=== PATIENT | female | born 1985 | race Caucasian/White ===

== ENCOUNTER → 2018-11-08 | Outpatient (REF) | payer OTHER | LOC: M LAB REF 11:52 | PROVIDERS: ATTEND Physician Assistant | DX: N76.1 Subacute and chronic vaginitis (principal) ==

== ENCOUNTER → 2018-12-29 | Outpatient (CLI) | payer OTHER | LOC: M SMT 11:40 | PROVIDERS: ATTEND Advanced Practice Midwife | DX: Z13.79 Encounter for other screening for genetic and chromosomal anomalies (principal) ==

== ENCOUNTER → 2019-04-19 | Outpatient (CLI) | payer OTHER ==
[2019-04-19 18:33] LABS: BASO % 0.3 % (0.0-1.0); EOS # 0.1 10^3/uL (0.0-0.50); EOS % 1.2 % (0.0-3.0); HEMATOCRIT 37.5 % (36.0-47.0); HEMOGLOBIN 12.7 g/dl (12.0-15.5); LYMPH # 1.6 10^3/uL (1.5-4.5); LYMPH % 20.1 % (24.0-44.0); MEAN CORPUSCULAR HEMOGLOBIN 32.9 pg (27.0-33.0); MEAN CORPUSCULAR HGB CONC 33.9 g/dl (32.0-36.5); MEAN CORPUSCULAR VOLUME 97.2 fl (80.0-96.0); MONO # 0.5 10^3/uL (0.0-0.8); MONO % 6.9 % (0.0-5.0); NEUTROPHILS # 5.5 10^3/uL (1.8-7.7); NEUTROPHILS % 71.2 % (36.0-66.0); PLATELET COUNT, AUTOMATED 232 10^3/uL (150-450); RED BLOOD COUNT 3.86 10^6/uL (4.00-5.40); WHITE BLOOD COUNT 7.7 10^3/uL (4.0-10.0)
[2019-04-19 21:09] LABS: CHLAMYDIA DNA AMPLIFICATION NEGATIVE (NEGATIVE); GC DNA AMPLIFICATION NEGATIVE (NEGATIVE)
[2019-04-20 10:46] LABS: HEPATITIS C VIRUS ABY INDEX 0.1 INDEX (<0.8); HIV 1&2 SCREEN CENTAUR NEGATIVE (NEGATIVE); RUBELLA IgG QUALITATIVE IMMUNE (IMMUNE)
== END ==
LOC: M SMT 14:12
PROVIDERS: ATTEND Advanced Practice Midwife
DX: Z36.89 Encounter for other specified antenatal screening (principal)

== ENCOUNTER → 2019-06-24 | Outpatient (CLI) | payer OTHER ==
--- NOTE | 2019-06-24 18:02 | REP ---
Obstetric sonography: History: Supervision of for anatomy. Findings: Scanning through the gravid uterus demonstrates a viable single intrauterine gestation in a variable lie. motion is observed and heart rate is recorded at 147 beats per minute. An anterior grade 1 to zero placenta is seen without evidence of previa or abruption. Amniotic fluid is subjectively normal. Closed cervical length is 3.8 cm. No extrauterine abnormalities observed. No anomaly is seen. The following anatomic structures are identified and felt to be sonographically unremarkable: cranium, choroid plexus, cavum, cerebellum posterior fossa, face and profile, lungs, four-chamber heart with left and right ventricular outflow tract views, diaphragm, left-sided stomach, abdominal wall cord insertion, three-vessel umbilical cord, kidneys and bladder, spine, upper and lower extremities. Biometry chart: BPD 4.1 cm 18 weeks 3 days head circumference 15.6 cm 18 weeks 4 days abdominal circumference 13.6 cm 19 weeks 0 days femur length 2.9 cm 18 weeks 6 days humeral length 2.9 cm 19 weeks 3 days HC/AC ratio normal 1.16, cephalic index normal 0.72, estimated weight 262 grams, 0 pounds 9 ounces, 57th percentile for 18 weeks 4 days. Impression: Viable single intrauterine gestation at 18-week 6 days by today's composite sonographic criteria. JANEL by today's sonography November 19, 2019. Electronically Signed by Rogelio Tijerina MD 06/24/2019 07:51 P
== END ==
LOC: M RAD 12:56
PROVIDERS: ATTEND Advanced Practice Midwife
DX: Z34.82 Encounter for supervision of other normal pregnancy, second trimester (principal)

== ENCOUNTER → 2019-08-15 | Outpatient (CLI) | payer OTHER | LOC: M PLALAB 10:36 | PROVIDERS: ATTEND Advanced Practice Midwife | DX: Z33.1 Pregnant state, incidental (principal) ==

== ENCOUNTER → 2019-10-19 | Outpatient (CLI) | payer OTHER | LOC: M PLALAB 15:37 | PROVIDERS: ATTEND Advanced Practice Midwife | DX: Z34.83 Encounter for supervision of other normal pregnancy, third trimester (principal); Z3A.00 Weeks of gestation of pregnancy not specified ==

== ENCOUNTER → 2019-10-19 | Outpatient (REF) | payer OTHER | LOC: M SFHCWAGY 16:52 | PROVIDERS: ATTEND Advanced Practice Midwife | DX: Z36.89 Encounter for other specified antenatal screening (principal); Z3A.00 Weeks of gestation of pregnancy not specified ==

== ENCOUNTER → 2019-11-07 | Outpatient (CLI) | payer OTHER ==
--- NOTE | 2019-11-07 11:51 | REP ---
OBSTETRIC SONOGRAPHY: HISTORY: Followup scan. History of shoulder dystocia in prior . FINDINGS: Scanning through the gravid uterus demonstrates a viable single intrauterine gestation in a cephalic lie. motion is observed and heart rate is recorded at 156 beats per minute. An anterior grade 3 placenta is seen without evidence of previa or abruption. Amniotic fluid is subjectively normal. Closed cervical length is measured at 2.7 cm, viewed transabdominally. No extrauterine abnormality is observed. There has been appropriate interval growth. The following anatomic structures are identified today and felt to be unremarkable: diaphragm, left-sided stomach, abdominal wall cord insertion, three-vessel cord, kidneys and bladder. Biometry Chart: BPD 8.6 cm = 34 weeks 5 days HC 33.5 cm = 38 weeks 2 days AC 39.1 cm = post term FL 7.5 cm = 38 weeks 3 days HL 6.6 cm = 38 weeks 2 days HC/AC ratio 0.86 (0.90-1.09) Cephalic index 0.69 (0.70-0.86). Estimated weight 4227 grams, 9 pounds 5 ounces, greater than 97th percentile for 38 weeks 0 days. VERÓNICA 13.3 cm. IMPRESSION: Viable single intrauterine gestation at 37 weeks 4 days by today's composite sonographic criteria for expected gestational age estimate based on prior sonography is 38 weeks 0 days. JANEL by prior sonography November 21, 2019. Estimated weight greater 97th percentile.
== END ==
LOC: M WHC 09:30
PROVIDERS: ATTEND Advanced Practice Midwife
DX: Z87.59 Personal history of other complications of pregnancy, childbirth and the puerperium (principal); Z36.89 Encounter for other specified antenatal screening; Z3A.38 38 weeks gestation of pregnancy

== ENCOUNTER 2019-11-14 05:04 | Inpatient (IN) | payer OTHER ==
[2019-11-14] VITALS (24 sets, daily range): BP systolic 109–135; BP diastolic 64–80
[~2019-11-14] VITALS: Ht 165.1 cm; Wt 81.9 kg
[2019-11-14] MEDS ORDERED: PREN29TA4 PO (05:22)
[2019-11-14] MEDS ORDERED: LACTATED RINGER'S 1000 ML IV STA (11:43)
--- NOTE | 2019-11-14 11:44 | IPNPDOC ---
Text Note Date of Service The patient was seen on 11/14/19. NOTE Progress Subjective: Patient is a 33-year-old at 39.0wk. Reports active movement, denies leakage of fluid or vaginal bleeding. Reports occasional mild uterine contractions. Objective: Alert and oriented x3. Abdomen soft, gravid. FHR category 1, occasional contractions. SVE 1/50/-2, intact at 0948. Assessment: SIUP at 39.0wk gestation. Induction of labor for suspected m acrosomia. Plan: Induction of labor per protocol. Regular diet at this time. Anesthesia consult as needed. Anticipate cervical ripening and dilation. Anticipate vaginal delivery. C/S as appropriate. VS,Fishbone, I+O VS, Fishbone, I+O Vital Signs Date Time Temp Pulse Resp B/P (MAP) Pulse Ox O2 Delivery O2 Flow Rate FiO2 11/14/19 08:40 81 18 110/70 (83) 11/14/19 07:16 97.7 IJEOMA MARTINEZ CNM Nov 14, 2019 11:44
[2019-11-14 12:00] LABS: HEMATOCRIT 35.1 % (36.0-47.0); HEMOGLOBIN 11.6 g/dl (12.0-15.5); MEAN CORPUSCULAR HEMOGLOBIN 31.3 pg (27.0-33.0); MEAN CORPUSCULAR VOLUME 94.6 fl (80.0-96.0); PLATELET COUNT, AUTOMATED 189 10^3/uL (150-450); RED BLOOD COUNT 3.71 10^6/uL (4.00-5.40); WHITE BLOOD COUNT 7.8 10^3/uL (4.0-10.0)
[2019-11-14] MEDS ORDERED: miSOPROStol 50 MCG 1/2 TAB (S0191) PO ONE (12:00)
[2019-11-14] MEDS ORDERED: OXYTOCIN DRIP 30 UNITS in IV 1 EA IV SCH (16:30)
--- NOTE | 2019-11-14 16:51 | IPNPDOC ---
Obstetrical Progress Note Date of Service Nov 14, 2019 Subjective Patient reports increased discomfort with uterine contractions, but breathing well through contractions. Reports positive movement, denies leakage of fluid or vaginal bleeding. Objective Vital Signs Date Time Temp Pulse Resp B/P (MAP) Pulse Ox O2 Delivery O2 Flow Rate FiO2 11/14/19 13:34 90 16 118/72 (87) 11/14/19 11:49 98.2 Assessment Heart Rate (FHR): 140 Variability: Moderate Accelerations: Positive Decelerations: None Heart Rate Tracing: Category I Tocometer Contractions: Yes Frequency: regular, other (every 3 to 5 minutes) Duration: greater than 60 seconds Strength: palpated as mild Sterile Vaginal Examination Dilation: 1cm Effacement (%): 70% Station: -2 Cervical Consistency: Medium Cervical Position: Posterior Postion/Presentation: Cephalic presentation Assessment and Plan Age: 33 : 4 Term: 3 Pre-term: 0 Abortions: 0 Livin EGA at Admission: 39.0 Status: Reassuring Group B Streptococcus: Negative Anticipate: Vaginal Delivery Additional Comments Start IV Pitocin per protocol. Anesthesia consult as needed. Anticipate cervical ripening and dilatation. Anticipate vaginal delivery. C/S as appropriate. IJEOMA MARTINEZ CNM Nov 14, 2019 16:48
[2019-11-14] MEDS ORDERED: FENTANYL 2MCG/ML ROPIVACAINE 0.2% IN 0.9% NACL 100ML IVBAG As Ordered ONE (21:32)
[2019-11-14] MEDS: LR 1,000 ML IV SCH (22:47)
[2019-11-14] MEDS ORDERED: EPIDURAL COMMENT XX SCH (23:00)
[2019-11-14] MEDS ORDERED: REFRIGERATOR IV KEYS XX PRN (23:00)
[2019-11-14] MEDS ORDERED: ONDANSETRON 4MG/2ML VIAL (J2405) IV PRN (23:00)
[2019-11-14] MEDS ORDERED: EPIDURAL/PCA KEYS XX PRN (23:00)
[2019-11-14] MEDS ORDERED: NALOXONE INJ 0.4 MG/1 ML VIAL (J2310) IV PRN (23:00)
[2019-11-14] MEDS ORDERED: diphenhydrAMINE INJ 50MG/ML VIAL (J1200) IV PRN (23:00)
[2019-11-14] MEDS ORDERED: FENTANYL/ROPIVACAINE/NACL BAG 100 ML EPIDURAL SCH (23:00)
[2019-11-15] VITALS (51 sets, daily range): BP systolic 95–135; BP diastolic 50–79
--- NOTE | 2019-11-15 06:19 | IPNPDOC ---
Obstetrical Progress Note Date of Service Nov 15, 2019 Subjective Patient reports she is feeling some pressure. She is comfortable with her epidural. Objective Vital Signs Date Time Temp Pulse Resp B/P (MAP) Pulse Ox O2 Delivery O2 Flow Rate FiO2 11/15/19 06:01 90 100/56 (71) 11/15/19 03:00 99.2 11/14/19 22:48 16 98 Room Air Assessment Heart Rate (FHR): 135 Variability: Moderate Accelerations: Positive Decelerations: None Heart Rate Tracing: Category I Tocometer Contractions: Yes Frequency: regular, other (2-4 minutes) Strength: palpated as moderate Sterile Vaginal Examination Dilation: 4 cm (4-5 minutes) Effacement (%): 80% Station: -1 Cervical Consistency: Soft Cervical Position: Middle Postion/Presentation: Cephalic presentation Assessment and Plan Age: 33 EGA at Admission: 39.0 Weeks & Days 39.1 weeks Status: Reassuring Group B Streptococcus: Negative Anticipate: Vaginal Delivery Additional Comments Induction was halted until about 2300 on 11/14/19 due to a lack of staff in dep artment and patient census. She was started on IV Pitocin at 2300 and she desired her epidural prior to IV Pitocin started. She is currently on 20 mu/min of IV Pitocin. Reviewed plan of care to AROM patient. IJEOMA MARTINEZ CNM Nov 15, 2019 06:19
[2019-11-15] MEDS: LR 1,000 ML IV SCH ×2 (08:19→09:54)
[2019-11-15] MEDS ORDERED: FENTANYL 2MCG/ML ROPIVACAINE 0.2% IN 0.9% NACL 100ML IVBAG As Ordered ONE (08:26)
[2019-11-15] MEDS: LACTATED RINGER'S 1000 ML IV PRN ×2 (09:37→09:58)
[2019-11-15] MEDS: ePHEDrine SULFATE 25 MG/5 ML(5MG/ML) SYRINGE IV PRN ×3 (09:44→10:06)
[2019-11-15] MEDS ORDERED: OXYTOCIN DRIP 30 UNITS in IV 1 EA IV ONE (15:45)
[2019-11-15] MEDS ORDERED: METHYLERGONOVINE MALEATE 0.2 MG TAB PO PRN (15:45)
[2019-11-15] MEDS ORDERED: MEASLES,MUMPS,RUBELLA VACCINE INJ (MMR-II) (90707) SC SCH (15:45)
[2019-11-15] MEDS ORDERED: DIBUCAINE 1% OINTMENT 30GM TOP PRN (15:45)
[2019-11-15] MEDS ORDERED: IBUPROFEN 600 MG TAB PO PRN (15:45)
[2019-11-15] MEDS ORDERED: DOCUSATE SODIUM 100 MG CAP PO PRN (15:45)
[2019-11-15] MEDS ORDERED: ACETAMINOPHEN TAB 650MG DOSE (2X325MG) PO PRN (15:45)
[2019-11-15] MEDS ORDERED: RHOGAM 300 MCG (1500 IU) INJ (J2790) IM SCH (15:45)
[2019-11-15] MEDS: IBUPROFEN 800 MG TAB PO PRN (16:54)
[2019-11-15] MEDS: ACETAMINOPHEN 500 MG TAB PO PRN (17:51)
[2019-11-16] MEDS: ACETAMINOPHEN 500 MG TAB PO PRN ×2 (00:11→05:57)
[2019-11-16 06:00] VITALS: BP 128/81
[2019-11-16] MEDS: IBUPROFEN 800 MG TAB PO PRN ×2 (08:51→17:12)
[2019-11-16] MEDS ORDERED: PRENATAL VITAMINS CHEWABLE TABLET PO SCH (09:00)
--- NOTE | 2019-11-16 10:51 | DN ---
DATE OF DELIVERY: 11/15/2019 PREDELIVERY DIAGNOSIS: Term , labor induction. POSTDELIVERY DIAGNOSIS: Delivered. PROCEDURE: Spontaneous vaginal delivery. SAW STRAIGHTENER: Peter Ziegler MD ANESTHESIA: Epidural. ESTIMATED BLOOD LOSS: 300 mL. FINDINGS: 9-pound 10-ounce female , scores 8 and 9. DELIVERY SUMMARY: After a 17-minute second stage, the patient had spontaneous delivery of a 9-pound 10-ounce female , scores 8 and 9. The shoulders delivered with ease. There was no nuchal cord. The was handed to the mother. The cord was doubly clamped and cut. The placenta delivered spontaneously and appeared to be intact. The patient received intravenous (IV) Pitocin immediately after delivery of the placenta. A small second-degree perineal laceration was repaired with 2-0 chromic in the usual fashion. Sponge and needs counts were correct.
== END 2019-11-16 17:45 | disposition home or self-care (01) | DRG 807 ==
LOC: M LDI 05:04 → M OBS 11-15 18:35
PROVIDERS: ADMIT Obstetrics & Gynecology; ATTEND Obstetrics & Gynecology
PROC: 0KQM0ZZ Repair Perineum Muscle, Open Approach (ICD-10-PCS; 2019-11-14)
PROC: 3E0P7GC Introduction of Other Therapeutic Substance into Female Reproductive, Via Natural or Artificial Opening (ICD-10-PCS; 2019-11-14)
PROC: 10E0XZZ Delivery of Products of Conception, External Approach (ICD-10-PCS; principal; 2019-11-15)
DX: O36.60X0 Maternal care for excessive fetal growth, unspecified trimester, not applicable or unspecified (principal); Z37.0 Single live birth; Z3A.39 39 weeks gestation of pregnancy; O70.1 Second degree perineal laceration during delivery

== ENCOUNTER → 2020-06-11 | Outpatient (CLI) | payer OTHER ==
[~2020-06-11] MED LIST: PREN29TA4 PO
== END ==
LOC: M LABSMTC 09:45
PROVIDERS: ATTEND Family Medicine
DX: Z20.828 Contact with and (suspected) exposure to other viral communicable diseases (principal)

== ENCOUNTER → 2020-11-16 | Outpatient (CLI) | payer OTHER ==
[2020-11-16 11:09] LABS: BASO # 0.1 10^3/uL (0.0-0.2); BASO % 0.8 % (0.0-1.0); EOS # 0.3 10^3/uL (0.0-0.5); EOS % 4.9 % (0.0-3.0); HEMATOCRIT 38.8 % (36.0-47.0); HEMOGLOBIN 12.6 g/dl (12.0-15.5); LYMPH # 1.8 10^3/uL (1.5-5.0); LYMPH % 29.8 % (24.0-44.0); MEAN CORPUSCULAR HEMOGLOBIN 31.8 pg (27.0-33.0); MEAN CORPUSCULAR HGB CONC 32.5 g/dl (32.0-36.5); MONO # 0.4 10^3/uL (0.0-0.8); MONO % 6.7 % (2.0-8.0); NEUTROPHILS # 3.4 10^3/uL (1.5-8.5); NEUTROPHILS % 57.5 % (36.0-66.0); PLATELET COUNT, AUTOMATED 243 10^3/uL (150-450); RED BLOOD COUNT 3.96 10^6/uL (4.00-5.40); WHITE BLOOD COUNT 5.9 10^3/uL (4.0-10.0)
[2020-11-16 11:32] LABS: ALBUMIN 3.7 GM/DL (3.2-5.2); ALT/SGPT 20 U/L (12-78); BILIRUBIN,TOTAL 0.4 MG/DL (0.2-1.0); BLOOD UREA NITROGEN 14 MG/DL (7-18); CALCIUM LEVEL 8.2 MG/DL (8.5-10.1); CARBON DIOXIDE LEVEL 28 MEQ/L (21-32); CHLORIDE LEVEL 109 MEQ/L (98-107); CREATININE FOR GFR 0.72 MG/DL (0.55-1.30); FREE T4 0.88 NG/DL (0.76-1.46); GLOMERULAR FILTRATION RATE > 60.0 (>60); GLUCOSE, FASTING 86 MG/DL (70-100); SODIUM LEVEL 142 MEQ/L (136-145); TOTAL PROTEIN 6.6 GM/DL (6.4-8.2)
== END ==
LOC: M PLALAB 09:07
PROVIDERS: ATTEND Family Medicine
DX: Z13.29 Encounter for screening for other suspected endocrine disorder (principal); Z13.0 Encounter for screening for diseases of the blood and blood-forming organs and certain disorders involving the immune mechanism

== ENCOUNTER → 2020-12-13 | Outpatient (CLI) | payer OTHER ==
[2020-12-13 15:39] LABS: HEMATOCRIT 38.8 % (36.0-47.0); HEMOGLOBIN 12.7 g/dl (12.0-15.5); MEAN CORPUSCULAR HEMOGLOBIN 31.9 pg (27.0-33.0); MEAN CORPUSCULAR HGB CONC 32.7 g/dl (32.0-36.5); MEAN CORPUSCULAR VOLUME 97.5 fl (80.0-96.0); PLATELET COUNT, AUTOMATED 212 10^3/uL (150-450); RED BLOOD COUNT 3.98 10^6/uL (4.00-5.40); WHITE BLOOD COUNT 4.2 10^3/uL (4.0-10.0)
[2020-12-13 15:56] LABS: ATYPICAL LYMPH 4 % (0-5); EOSINOPHILS 10 % (0-3); LYMPHOCYTES 33 % (16-44); MONOCYTES 7 % (0-5); NEUTROPHILS 46 % (28-66); PLATELET ESTIMATE NORMAL (NORMAL)
== END ==
LOC: M PLALAB 14:11
PROVIDERS: ATTEND Family Medicine
DX: R59.0 Localized enlarged lymph nodes (principal)

== ENCOUNTER → 2020-12-25 | Outpatient (CLI) | payer OTHER ==
--- NOTE | 2020-12-25 15:36 | REP ---
INDICATION: ENLARGED SUPRACLAVICULAR LN VS LIPOMA COMPARISON: None. TECHNIQUE: Weir scale and color evaluation of the supraclavicular neck using the linear high frequency transducer. FINDINGS: Directed ultrasound examination in the left supraclavicular region at the site of palpable mass demonstrates an ovoid hypoechoic lesion measuring 9 x 9 x 5 mm with central hilum compatible with lymph node. IMPRESSION: Palpable mass corresponds to normal appearing lymph node. <Electronically signed by Gen Valverde > 12/25/20 [id number]
== END ==
LOC: M RAD 14:33
PROVIDERS: ATTEND Family Medicine
DX: R59.0 Localized enlarged lymph nodes (principal)

== ENCOUNTER → 2020-12-31 | Outpatient (REF) | payer OTHER | LOC: M SFHCWAGY 13:26 | PROVIDERS: ATTEND Obstetrics & Gynecology | DX: Z12.4 Encounter for screening for malignant neoplasm of cervix (principal) | CPT/HCPCS: 87624; G0123 ==

== ENCOUNTER → 2021-01-18 | Outpatient (CLI) | payer OTHER | LOC: M WHC 14:16 | PROVIDERS: ATTEND Obstetrics & Gynecology | DX: N60.01 Solitary cyst of right breast (principal) ==

== ENCOUNTER → 2021-02-13 | Outpatient (CLI) | payer OTHER ==
[2021-02-13 09:49] VITALS: BP 108/66
--- NOTE | 2021-02-13 22:47 | ROOPDOC ---
[facility] Report Of Operation Report of Operation Date of the procedure: 02/13/21 Diagnosis:Right breast painful cluster of cysts Procedure:Ultrasound guided aspiration of Right breast painful cluster of cysts Proceduralist: Frances Ruiz D.O. Lidocaine 1% LOT [id number] Expiration:03/2024 Sodium Bicarbonate 8.4% LOT [id number] Expiration: 06/2022 Procedure details: Informed consent was obtained. The most common risk and possible complications including bleeding, hematoma, bruising, infection, injury to surrounding structures were explained to the patient and she expressed understanding. Patient was taken to the procedure room and placed on the bed in the supine position with the right upper extremity placed above the head. Appropriate time out was done stating patients name, date of , and the procedure to be performed. The right breast was prepped and draped in the usual fashion. The ultrasound was used to confirm the location of the painful cluster of cysts in the right breast at 3:00 8 centimeters from the nipple. Plain Lidocaine 1% and 8.4% sodium bicarbonate 10:1 mix was used to anesthetize the skin, and tissues along the anticipated aspiration tract. 18 G needle was used to aspirate cluster of cysts under ultrasound guidance. Aspirated fluid was milky. Since patient is lactating, this fluid was felt to be physiologic. The cluster of cysts completely collapsed and images were captured. Manual pressure over the cyst aspiration site and tract was held. No bleeding was noted upon removal of the pressure. Patient tolerated procedure well. Discharge instructions were discussed with the patient and she expressed understanding. FRANCES RUIZ DO Feb 13, 2021 22:47
== END ==
LOC: M WHCPRO 06:26
PROVIDERS: ATTEND Surgery
DX: N63.10 Unspecified lump in the right breast, unspecified quadrant (principal)

== ENCOUNTER → 2021-06-18 | Outpatient (CLI) | payer OTHER ==
--- NOTE | 2021-06-18 15:29 | REP ---
INDICATION: RIGHT BREAST MASS 400 CFN 10 CFN. COMPARISON: 01/03/2021. TECHNIQUE: Real-time sonographic evaluation of right breast performed. FINDINGS: At the site of the palpable lump at 4 o'clock a cluster of irregular cystic structures is again visualized. The area involved measures 1.6 x 0.7 x 1.7 cm. Average KP a value with elastography interrogation is 29.5 KPA. IMPRESSION: BIRADS/ACR category 3, probably benign. Cluster of irregular cysts 4 o'clock right breast appearing similar to the prior exam. RECOMMENDATION: Correlate with biopsy results from 02/13/2021. <Electronically signed by Adolfo Weir > 06/18/21 [id number]
== END ==
LOC: M WHC 13:58
PROVIDERS: ATTEND Surgery
DX: N60.11 Diffuse cystic mastopathy of right breast (principal)

== ENCOUNTER → 2021-06-19 | Outpatient (CLI) | payer OTHER ==
[2021-06-19 16:31] VITALS: BP 112/80
--- NOTE | 2021-06-23 18:12 | ROOPDOC ---
[facility] Report Of Operation Report of Operation DATE OF PROCEDURE: 06/19/21 DIAGNOSIS: right breast palpable lesion PROCEDURE: ultrasound guided biopsy of the right breast palpable lesion with clip placement and aspiration of cystic fluid SURGEON: Frances Ruiz BLOOD LOSS: minimal COMPLICATIONS: none Lidocaine 1% LOT [id number] Expiration 12/2023 Sodium Bicarbonate 8.4% LOT [id number] Expiration 10/2021 Hydromark clip LOT [id number] Expiration 03/2024 SHAPE: 3 Bx device: BARD [id number] x10 cm LOT [id number] Expiration 02/2024 Informed consent was obtained. The most common risk and possible complications including bleeding, hematoma, bruising, infection, injury to surrounding structures were explained to the patient and the patient expressed understanding. Patient was placed on the bed in the supine position. Appropriate time out was done stating patients name, date of , and the procedure to be performed. The right breast was prepped and draped in the usual fashion. The ultrasound was used to confirm the location of the lesion in the right breast at 4:00 10 centimeters from the nipple. Plain Lidocaine 1% and 8.4% sodium bicarbonate 10:1 mix was used to anesthetize the skin, the biopsy site and tissues along the anticipated biopsy tract. Small skin incision was made with blade number 11. BARD Marquee 14G cannula with introducer ([id number]) was inserted through the incision and advanced under the ultrasound guidance to position immediately adjacent to the lesion. Next, the introducer was removed and BARD Marquee 14G biopsy device was places in the cannula. Pre-biopsy imaging, and post-biopsy imaging were captured. Only one biopsy core was taken as the target disappeared. Specimen was placed in formaldehyde, labeled with appropriate biopsy site and patients name, and sent to pathology for evaluation. After the core biopsy was taken, milky fluid was noted coming from the canula. This was collected and any remaining cystic fluid was aspirated and sent for evaluation. Next, the biopsy device was withdrawn and a clip introducer was inserted into the biopsy site via the cannula. SHAPE 3 Hydromark clip was deployed under sonographic guidance. Post-clip placement image was captured. Manual pressure over the biopsy cavity and tract was held after the clip introducer was withdrawn. No bleeding was noted upon removal of the pressure. Post-biopsy mammogram was not done because it was done immediately prior to the biopsy and the hydromark clip was seen on sonography. Postprocedural dressing was placed. Patient tolerated procedure well. Discharge instructions were discussed with the patient and the patient expressed understanding. FRANCES RUIZ DO Jun 23, 2021 18:12
== END ==
LOC: M WHCPRO 14:50
PROVIDERS: ATTEND Surgery
DX: D24.1 Benign neoplasm of right breast (principal)

== ENCOUNTER → 2021-06-19 | Outpatient (CLI) | payer OTHER ==
--- NOTE | 2021-06-19 18:10 | REP ---
INDICATION: RIGHT BREAST MASS. COMPARISON: Ultrasound 06/19/2021. TECHNIQUE: MLO and CC views bilateral breasts with tomosynthesis and additional spot compression views of the posteromedial inferior palpable lump on the right. FINDINGS: Breasts are heterogeneously dense. No discrete mass is seen. No clustered microcalcifications are seen. The Volpara volumetric breast density pattern is C. IMPRESSION: BIRADS/ACR category 1, negative bilateral mammogram. No evidence of mass, architectural distortion or clustered microcalcifications. This patient's Tyrer-Cuzick lifetime breast cancer risk assessment score is 35.0%. This mammogram was interpreted with the aid of an FDA-approved computer-aided detection system. The patient states she had a clinical breast exam in June 2021. The patient letter being requested is M1. RECOMMENDATION: Recommend follow-up screening MRI of the breasts given the elevated lifetime risk of breast cancer and dense breasts. <Electronically signed by Adolfo Weir > 06/19/21 [id number]
== END ==
LOC: M WHC 14:11
PROVIDERS: ATTEND Surgery
DX: N63.10 Unspecified lump in the right breast, unspecified quadrant (principal)
CPT/HCPCS: 77066; G0279

== ENCOUNTER → 2021-12-19 | Outpatient (CLI) | payer OTHER ==
[2021-12-19 14:36] LABS: BASO % 0.5 % (0.0-1.0); EOS # 0.1 10^3/uL (0.0-0.5); EOS % 0.8 % (0.0-3.0); HEMATOCRIT 36.4 % (36.0-47.0); HEMOGLOBIN 12.3 g/dl (12.0-15.5); LYMPH # 1.3 10^3/uL (1.5-5.0); LYMPH % 20.8 % (24.0-44.0); MEAN CORPUSCULAR HEMOGLOBIN 32.7 pg (27.0-33.0); MEAN CORPUSCULAR HGB CONC 33.8 g/dl (32.0-36.5); MEAN CORPUSCULAR VOLUME 96.8 fl (80.0-96.0); MONO # 0.3 10^3/uL (0.0-0.8); MONO % 5.5 % (2.0-8.0); NEUTROPHILS # 4.5 10^3/uL (1.5-8.5); NEUTROPHILS % 72.2 % (36.0-66.0); PLATELET COUNT, AUTOMATED 256 10^3/uL (150-450); RED BLOOD COUNT 3.76 10^6/uL (4.00-5.40); WHITE BLOOD COUNT 6.2 10^3/uL (4.0-10.0)
[2021-12-19 15:47] LABS: HEPATITIS C VIRUS ABY INDEX 0.1 INDEX (<0.8); HIV 1&2 SCREEN CENTAUR NEGATIVE (NEGATIVE)
[2021-12-19 16:09] LABS: GC DNA AMPLIFICATION NEGATIVE (NEGATIVE)
== END ==
LOC: M PLALAB 09:21
PROVIDERS: ATTEND Obstetrics & Gynecology
DX: Z34.91 Encounter for supervision of normal pregnancy, unspecified, first trimester (principal); Z36.89 Encounter for other specified antenatal screening
CPT/HCPCS: 36415; 85025; 86762; 86780; 86803; 86850; 86900; 86901; 87086; 87340; 87389; 87810; 87850; G0463